=== PATIENT | male | born 1985 | race African-American/Black ===

== ENCOUNTER 2016-08-15 17:40 | Emergency (ER) | payer OTHER ==
[~2016-08-15 17:40] MED LIST: BENZONATATE PO; NO MEDICATIONS; VOLTAREN75 MG PO
== END 2016-08-15 18:35 | disposition home or self-care (01) ==
LOC: CFTX 17:40
DX: H10.31 Unspecified acute conjunctivitis, right eye (principal); F17.210 Nicotine dependence, cigarettes, uncomplicated
CPT/HCPCS: 99283